=== PATIENT | male | born 1965 | race Asian ===

== ENCOUNTER → 2025-09-07 | Outpatient (CLI) | payer OTHER ==
[~2025-09-07] MED LIST: METHACHOLINE KIT (6 VIAL.NEB PREMIX) INH ONE
== END ==
LOC: M CARPUL 12:05
PROVIDERS: ATTEND Physician Assistant
DX: R06.02 Shortness of breath (principal); R06.2 Wheezing; Z65.5 Exposure to disaster, war and other hostilities
CPT/HCPCS: 71250; 94070; 95070; J7674